=== PATIENT | male | born 1940 | race Caucasian/White ===

== ENCOUNTER 2023-02-25 14:47 | Emergency (ER) | payer MEDICARE ==
[~2023-02-25] VITALS: Ht 165.1 cm; Wt 83.9 kg
[2023-02-25] MEDS ORDERED: SIMVASTATIN (15:21)
[2023-02-25] MEDS ORDERED: PANT40TA49 PO (15:21)
[2023-02-25] MEDS ORDERED: RAMI5CAP66 PO (15:21)
[2023-02-25] MEDS ORDERED: LIDOCAINE HCL 1% 20 ML VIAL ONE (15:39)
[2023-02-25] MEDS ORDERED: LIDOCAINE HCL 1% 20 ML VIAL IJ ONE (15:45)
[2023-02-25 16:34] LABS: BASOPHILS # (AUTO) 0.1 K/UL (0.0-0.2); BASOPHILS % (AUTO) 1.4 % (0.0-2.0); CALCIUM 9.3 mg/dL (8.5-10.1); CARBON DIOXIDE 23 mmol/L (21-32); CHLORIDE 103 mmol/L (98-107); CREATININE 2.9 mg/dL (0.6-1.3); EOSINOPHILS # (AUTO) 0.2 K/uL (0.0-0.7); EOSINOPHILS % (AUTO) 2.4 % (0.0-7.0); GLUCOSE 115 mg/dL (74-106); HEMATOCRIT 35.8 % (36.7-47.1); HEMOGLOBIN 11.9 g/dL (12.5-16.3); LYMPHOCYTES % (AUTO) 12.7 % (20.5-51.5); MEAN CORPUSCULAR HEMOGLOBIN 28.1 uug (23.8-33.4); MEAN CORPUSCULAR HGB CONC 33 g/dL (32.5-36.3); MEAN CORPUSCULAR VOLUME 84.3 fL (73.0-96.2); MONOCYTES # (AUTO) 1.1 K/uL (0.1-1.30); NEUTROPHILS # (AUTO) 5.7 K/uL (1.8-8.9); NEUTROPHILS % (AUTO) 70.5 % (38.5-71.5); PLATELET COUNT (AUTO) 279 K/uL (152-348); POTASSIUM 4.8 mmol/L (3.5-5.1); RED BLOOD CELL COUNT(AUTO) 4.24 MIL/uL (4.06-5.63); RED CELL DISTRIBUTION WIDTH 14.3 % (12.1-16.2); SODIUM SERUM 136 mmol/L (136-145); UREA NITROGEN, BLOOD 30 mg/dL (7-18); WHITE BLOOD COUNT (AUTO) 8.1 K/uL (3.6-10.2)
[2023-02-25 16:35] LABS: DIFFERENTIAL COMMENT 1
[2023-02-25 16:40] LABS: ALANINE AMINOTRANSFERASE 20 U/L (16-63); ALBUMIN 3.4 g/dL (3.4-5.0); ALKALINE PHOSPHATASE 94 U/L (50-136); ASPARTATE AMINOTRANSFERASE 14 U/L (15-37); BILIRUBIN,TOTAL 0.2 mg/dL (0.2-1.0); TOTAL PROTEIN, SERUM 7.1 g/dL (6.4-8.2)
[2023-02-25] MEDS ORDERED: VANCOMYCIN IV 200 ML ONE (16:49)
[2023-02-25] MEDS ORDERED: VANCOMYCIN IV 1,000 MG in IV DEXTROSE 5% 250 ML IV ONE (17:00)
[2023-02-25 18:23] VITALS: BP 118/80; TEMP 98; O2SAT 99
== END 2023-02-25 18:24 | disposition home or self-care (01) ==
LOC: ER 14:53
DX: L02.413 Cutaneous abscess of right upper limb (principal); E11.9 Type 2 diabetes mellitus without complications; Z79.899 Other long term (current) drug therapy
CPT/HCPCS: 99284; 96365; 10060; 80053; 85025; 36415; J3490; J3370; A4663